=== PATIENT | female | born 2000 | race Caucasian/White ===

== ENCOUNTER → 2021-01-03 | Emergency (ER) | payer MEDICAID ==
[~2021-01-03] VITALS: Ht 162.6 cm; Wt 70.5 kg
[~2021-01-03] MED LIST: ACETAMINOPHEN 500 MG TABLET PO ONE; KETOROLAC TROMETHAMINE 30 MG/ML VIAL IM ONE
[2021-01-03 15:00] VITALS: BP 111/66
[2021-01-03 16:12] LABS: COVID AG,FIA SOURCE NASOPHARYNGEAL
== END | disposition home or self-care (01) ==
LOC: EMS 14:34
DX: J02.9 Acute pharyngitis, unspecified (principal); R50.9 Fever, unspecified; D56.9 Thalassemia, unspecified; Z20.822 Contact with and (suspected) exposure to COVID-19
CPT/HCPCS: 81025; 87426; 87430; 96372; 99283; J1885; U0003